=== PATIENT | female | born 1965 | race Two or more races ===

== ENCOUNTER 2019-10-19 12:35 | Emergency (ER) | payer MEDICARE, OTHER ==
[~2019-10-19] VITALS: Ht 167.6 cm; Wt 65.8 kg
[2019-10-19 14:46] VITALS: BP 145/95
[2019-10-19] MEDS ORDERED: KETOROLAC TROMETH 60MG/2ML VIAL IM ONE (17:00)
== END 2019-10-19 17:23 | disposition home or self-care (01) ==
LOC: ER 12:37
DX: G43.909 Migraine, unspecified, not intractable, without status migrainosus (principal); I10 Essential (primary) hypertension; Z86.73 Personal history of transient ischemic attack (TIA), and cerebral infarction without residual deficits
CPT/HCPCS: 70450; 96372; 99284; J1885